=== PATIENT | male | born 1970 | race Caucasian/White ===

== ENCOUNTER 2016-07-15 15:41 | Emergency (ER) | payer BC ==
[2016-07-15 15:53] VITALS: BP 152/91
--- NOTE | 2016-07-15 16:03 | ERNOTE ---
ENT HPI Date of Service: 07/15/16 Presenting Symptoms: dental pain Time Seen by Provider: 07/15/16 15:47 Source: patient Exam Limitations: no limitations - Immun/Allergies/Home Medications Home Medications: HOME MEDICATIONS Penicillin V Potassium [Pen-Vee K] 500 mg PO QID #40 tab 07/15/16 [Last Taken Unknown] - History of Present Illness Narrative: Patient presents to the ED for dental pain and facial swelling. He relates he has just been set up with a dentist, has an appointment in 2 weeks. He was having dental pain and had broken a tooth. Since this am he has noticed swelling in his left face, maxillary region when he broke the tooth. He states the pain isn't too bad, takes ibuprofen when it hurts. No trouble breathing or swallowing. Had this before and penicillin helped. Severity: Present: mild ENT Location: Present: dental Prearrival Treatment: Present: no prearrival treatment Modifying Factors - Improves: Reports: other - ibuprofen Modifying Factors - Worsens: Reports: other - palpation Associated Symptoms - ENT: Reports: tooth pain. Denies: fever, voice change, sore throat, nasal congestion/drainage Review of Systems - Review of Systems Constitutional: Absent: fever EYE: Absent: vision changes ENT: Present: See HPI. Absent: sore throat, throat swelling Respiratory: Absent: shortness of breath Cardiology: Absent: chest pain Physical Exam - Physical Exam General Appearance: Present: alert, no apparent distress Eye Exam: Normal inspection: bilateral, PERRL: bilateral Ears, Nose, Throat: Present: other - There may be some very mild swelling left cheek area but subtle. He has numerous caries. Gingival erythema left maxillary area with dental tenderness tro percussion. No abscess is visualized. No ANUG or Roshan's angina.. Absent: pharyngeal erythema, pharyngeal swelling, tonsillar exudate, tonsillar swelling, dry mucous membranes Neck: Present: normal inspection, other - No masses Respiratory: Present: no respiratory distress, normal breath sounds, lungs clear Cardiovascular/Chest: Present: regular rate, rhythm Gastrointestinal/Abdominal: Present: normal bowel sounds, nontender, soft Neurological Exam: Absent: motor weakness Skin Exam: Absent: skin rash ED Progress - Vital Signs Patient's Vital Signs:: I have reviewed the patient's vital signs. Vital Signs: Vital Signs 07/15/16 15:48 Temperature 35.4 C L Pulse Rate 79 Respiratory 16 Rate Blood Pressure 152/91 O2 Sat by Pulse 96 Oximetry - Progress/Reassessment Chief Complaint: Dental Problem Progress Note-Subjective: 07/15/16 16:00 No evidence of drainable abscess, Roshan's angina or ANUG. Departure Clinical Impression: Pain, dental - Departure Disposition: Home self-care Condition: Stable Instructions: Dental Caries Additional Instructions: Call your dentist in the morning to get an appointment as soon as possible. Return for increased pain, trouble breathing or swallowing or if your condition worsens or changes in any way. Prescriptions: Penicillin V Potassium [Pen-Vee K] 500 mg PO QID #40 tab
[2016-07-15] MEDS ORDERED: CLINDAMYCIN PHOSPHATE 900 MG in DEXTROSE 5 % IN WATER 100 ML IV ONE ×2 (22:15)
== END 2016-07-15 16:18 | disposition home or self-care (01) ==
LOC: ER 15:41
DX: K08.89 Other specified disorders of teeth and supporting structures (principal)

== ENCOUNTER 2016-07-15 21:22 | Emergency (ER) | payer BC ==
[2016-07-15 21:38] VITALS: BP 189/106
[2016-07-15] MEDS ORDERED: ACETAMINOPHEN 500 MG TABLET PO ONE (21:55)
[2016-07-15] MEDS ORDERED: CLINDAMYCIN PHOSPHATE 900 MG in DEXTROSE 5 % IN WATER 100 ML IV SCH ×2 (22:00)
--- NOTE | 2016-07-15 22:39 | ERNOTE ---
ENT HPI Date of Service: 07/15/16 Presenting Symptoms: dental pain Time Seen by Provider: 07/15/16 22:04 Source: patient Exam Limitations: no limitations - Immun/Allergies/Home Medications Immunizations: IMMUNIZATION HX Immunizations Up to Date No History of Influenza Vaccine No Hx Pneumococcal Vaccination No Allergies/Adverse Reactions: Allergies Allergy/AdvReac Type Severity Reaction Status Date / Time No Known Allergies Allergy Unverified 07/15/16 21:38 Home Medications: HOME MEDICATIONS Naproxen [Naprosyn] 500 mg PO BID PRN #20 tablet 07/15/16 [Last Taken Unknown] Penicillin V Potassium [Pen-Vee K] 500 mg PO QID #40 tab 07/15/16 [Last Taken 18:00] - History of Present Illness Narrative: See earlier today for dental pain and was given a prescription for penicillin, which he has started. He returns again due to increased left facial swelling and increased pain (moderate). Denies any fevers, chill, fullness in the floor of the mouth or difficulty swallowing. Severity: Present: moderate ENT Location: Present: mouth Prearrival Treatment: Present: prescription meds Modifying Factors - Improves: Reports: other - none Modifying Factors - Worsens: Reports: other - pressure Associated Symptoms - ENT: Denies: voice change, sore throat, drooling Prior Treament: Reports: recently seen Review of Systems - Review of Systems Constitutional: Present: no symptoms reported EYE: Present: no symptoms reported ENT: Present: See HPI Respiratory: Present: no symptoms reported Cardiology: Present: no symptoms reported Gastrointestinal/Abdominal: Present: no symptoms reported Genitourinary: Present: no symptoms reported Musculoskeletal: Present: no symptoms reported Skin: Present: no symptoms reported Neurological: Present: no symptoms reported Endocrine: Present: no symptoms reported Hematologic/Lymphatic: Present: no symptoms reported Psych: Present: no symptoms reported - Patient's Past Medical History Patient History - Medical: Obesity Patient History - Cardiac/Respiratory: Hypertension Patient History - Cancer: No Hx of Cancer Patient History - Surgical Procedures: Other Patient History - Other: None - Social History Living Situations: home - Immunizations Immunizations Up to Date: No Hx Pneumococcal Vaccination: No History of Influenza Vaccine: No Physical Exam - Physical Exam General Appearance: Present: no apparent distress Eye Exam: Normal inspection: bilateral Ears, Nose, Throat: Present: other - decayed left maxillary premolars; Sweeling at the left cheek in the area of the maxillary sinus. 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 Vital Signs: Vital Signs 07/15/16 07/15/16 15:48 21:34 Temperature 35.4 C L 35.9 C L Pulse Rate 81 Respiratory 16 Rate Blood Pressure 152/91 189/106 O2 Sat by Pulse 95 Oximetry - CT/Ultrasound CT/Ultrasound Narrative: CT demonstrated anterior facial subcutaneous stranding ; no abscess. - Progress/Reassessment Chief Complaint: Dental Problem Progress Note-Subjective: 07/15/16 23:07 The pain has resolved. Watching television. Departure Clinical Impression: Pain, dental - Departure Disposition: Home self-care Condition: Good Instructions: Dental Abscess, [id number] Print Language: Faroese Additional Instructions: Continue taking the Penicillin that you were given earlier. If the pain worsens return to the ED. Prescriptions: Naproxen [Naprosyn] 500 mg PO BID PRN #20 tablet PRN Reason: Pain
== END 2016-07-15 23:15 | disposition home or self-care (01) ==
LOC: ER 21:22
DX: K08.89 Other specified disorders of teeth and supporting structures (principal)